=== PATIENT | male | born 1985 | race Two or more races ===

== ENCOUNTER 2017-02-15 01:34 | Emergency (ER) | payer MEDICAID ==
[~2017-02-15] VITALS: Ht 175.3 cm; Wt 95.3 kg
[2017-02-15 02:05] VITALS: BP 155/108
[2017-02-15] MEDS ORDERED: IBUPROFEN 600 MG TAB PO ONE (03:45)
== END 2017-02-15 04:58 | disposition home or self-care (01) ==
LOC: ER 01:34
DX: S20.222A Contusion of left back wall of thorax, initial encounter (principal); K59.00 Constipation, unspecified; I10 Essential (primary) hypertension; G89.29 Other chronic pain; M54.9 Dorsalgia, unspecified; M79.1 Myalgia; Z88.0 Allergy status to penicillin; W22.8XXA Striking against or struck by other objects, initial encounter; Y93.E1 Activity, personal bathing and showering; Y92.89 Other specified places as the place of occurrence of the external cause; Y99.8 Other external cause status; Z88.8 Allergy status to other drugs, medicaments and biological substances
CPT/HCPCS: 72070; 72100